=== PATIENT | male | born 1965 | race Caucasian/White ===

== ENCOUNTER 2021-07-26 06:03 | Day surgery (SDC) | payer OTHER ==
[~2021-07-26] VITALS: Ht 170.2 cm; Wt 91.6 kg
[2021-07-26] MEDS ORDERED: LIDOCAINE 2% 100 MG/5 ML UJET TP ONE (07:31)
[2021-07-26] MEDS ORDERED: fentaNYL citrate 0.05 MG/ML VIAL ONE (07:31)
[2021-07-26] MEDS ORDERED: fentaNYL citrate 0.05 MG/ML VIAL IVP ONE (08:35)
== END 2021-07-26 08:39 | disposition home or self-care (01) ==
LOC: MDS 06:03 → MMU 06:04 → MDS 08:39
PROVIDERS: ATTEND Internal Medicine Gastroenterology
DX: Z12.11 Encounter for screening for malignant neoplasm of colon (principal); D12.3 Benign neoplasm of transverse colon; I12.9 Hypertensive chronic kidney disease with stage 1 through stage 4 chronic kidney disease, or unspecified chronic kidney disease; E11.22 Type 2 diabetes mellitus with diabetic chronic kidney disease; N18.9 Chronic kidney disease, unspecified; Z99.2 Dependence on renal dialysis; Z79.4 Long term (current) use of insulin; Z20.822 Contact with and (suspected) exposure to COVID-19; Z79.899 Other long term (current) drug therapy
CPT/HCPCS: 45385; 87426; J3010